=== PATIENT | female | born 1975 | race Caucasian/White ===

== ENCOUNTER 2020-07-07 | Emergency (ER) | payer MEDICAID, MEDICARE ==
[~2020-07-07] VITALS: Ht 162.6 cm; Wt 55.3 kg
[2020-07-07 00:02] VITALS: BP 115/79
--- NOTE | 2020-07-07 00:07 | NUR ---
pt ambulated to ER bed 12 w/ steady gait.
--- NOTE | 2020-07-07 00:13 | NUR ---
45 year old female c/o sore throat secondary to having a blister on left lateral region of the tongue that started x 3 days. state unable to recall blister came about. denies any other s/sx. airway WNL. cbl sounds. denies any injury/trauma. awaiting MSE. pmhx: denies nka
--- NOTE | 2020-07-07 00:32 | NUR ---
Dr. Bermeo examining patient.
[2020-07-07] MEDS ORDERED: IBUPROFEN 600 MG TAB PO ONE (00:35)
[2020-07-07] MEDS ORDERED: ACETAMINOPHEN 325 MG TAB PO ONE (00:35)
--- NOTE | 2020-07-07 01:17 | NUR ---
strep swab collected and sent to lab.
[2020-07-07 02:01] VITALS: BP 115/79
--- NOTE | 2020-07-07 02:01 | NUR ---
Patient discharged with v/s stable. Written and verbal after care instructions given and explained. Patient verbalized understanding. Ambulatory with steady gait. All questions addressed prior to discharge. Advised to follow up with PMD.
== END 2020-07-07 02:01 | disposition home or self-care (01) ==
LOC: MED
DX: J02.9 Acute pharyngitis, unspecified (principal); K14.0 Glossitis
CPT/HCPCS: 81025; 87081; 99283

== ENCOUNTER 2022-12-05 01:35 | Emergency (ER) | payer MEDICAID ==
[~2022-12-05] VITALS: Ht 162.6 cm; Wt 54.4 kg
[2022-12-05 01:37] VITALS: BP 121/79
--- NOTE | 2022-12-05 01:40 | NUR ---
to bed ambulatory
--- NOTE | 2022-12-05 01:49 | NUR ---
X-Ray at bedside.
--- NOTE | 2022-12-05 02:00 | NUR ---
WALKED URINE TO LAB
[2022-12-05 02:08] LABS: APPEARANCE,URINE CLEAR (CLEAR); BILIRUBIN,URINE NEGATIVE (NEGATIVE); BLOOD, URINE NEGATIVE (NEGATIVE); COLOR,URINE YELLOW (YELLOW); LEUKOCYTE ESTERASE ,URINE 3+ (NEGATIVE); NITRITE, URINE NEGATIVE (NEGATIVE); UGLUCOSE NEGATIVE (NEGATIVE)
[2022-12-05 02:15] LABS: RBC,URINE 0-5 /HPF (0-5)
[2022-12-05] MEDS ORDERED: NACL 0.9% 1,000 ML IV ONE (02:25)
[2022-12-05] MEDS ORDERED: LORazepam 2 MG/ML VIAL IVP ONE (02:25)
--- NOTE | 2022-12-05 02:46 | NUR ---
Dr. Salazar examining patient.
--- NOTE | 2022-12-05 02:51 | NUR ---
DR FONTAINE DC IV FLUIDS AND IVP MEDS
[2022-12-05] MEDS ORDERED: cefTRIAXone 500 MG in LIDOCAINE MPF 1% 1 ML IM ONE (03:40)
[2022-12-05] MEDS ORDERED: LIDOCAINE MPF 1% 5 ML ONE (03:49)
[2022-12-05] MEDS ORDERED: cefTRIAXone 500 MG VIAL ONE (03:49)
[2022-12-05] MEDS ORDERED: DOXY-690 PO (03:57)
[2022-12-05] MEDS ORDERED: METR-520 PO (03:57)
[2022-12-05] MEDS ORDERED: ALBU0.0912 INH (03:57)
[2022-12-05] MEDS ORDERED: BENZ200C4 PO (03:57)
[2022-12-05 04:20] VITALS: BP 111/69
--- NOTE | 2022-12-05 04:29 | NUR ---
Patient discharged with v/s stable. Written and verbal after care instructions given and explained. Patient alert, oriented and verbalized understanding of instructions. Ambulatory with steady gait. All questions addressed prior to discharge. ID band removed. Patient advised to follow up with PMD. Rx of aLBUTEROL, BENZONATATE, DOXYCYCLINE AND FLAGYL given. Patient educated on indication of medication including possible reaction and side effects. Opportunity to ask questions provided and answered.
--- NOTE | 2022-12-07 13:26 | NUR ---
LATE ENTRY -- CONFIRMED WITH NURSE NO NS INFUSION WAS STARTED. ORDER DISCONTINUED.
== END 2022-12-05 04:29 | disposition home or self-care (01) ==
LOC: MED 01:35
DX: J20.9 Acute bronchitis, unspecified (principal); Z20.822 Contact with and (suspected) exposure to COVID-19
CPT/HCPCS: 71045; 81001; 87086; 87426; 87491; 87804; 96372; 99285; J0696; J2001; Q0092; J2060